=== PATIENT | male | born 1995 | race Two or more races ===

== ENCOUNTER → 2023-11-01 | Emergency (ER) | payer OTHER ==
[~2023-11-01] VITALS: Ht 172.7 cm; Wt 127.0 kg
[~2023-11-01] MED LIST: KETOROLAC TROMETHAMINE 30 MG VIAL IM STA; METFORMIN HCL500 MG; ZESTRIL10 M1
== END | disposition home or self-care (01) ==
LOC: ER 09:44
DX: R20.2 Paresthesia of skin (principal); E11.9 Type 2 diabetes mellitus without complications; Z79.84 Long term (current) use of oral hypoglycemic drugs

== ENCOUNTER 2024-03-17 19:26 | Emergency (ER) | payer OTHER ==
[~2024-03-17] VITALS: Ht 170.2 cm; Wt 127.0 kg
[~2024-03-17 19:26] MED LIST changes: -KETOROLAC TROMETHAMINE 30 MG VIAL IM STA
[2024-03-17] MEDS ORDERED: ZESTRIL30 MG (19:33)
[2024-03-17] MEDS ORDERED: CEFTRIAXONE SODIUM 1,000 MG VIAL IM STA (20:14)
[2024-03-17] MEDS ORDERED: KETOROLAC TROMETHAMINE 30 MG VIAL IM STA (20:14)
== END 2024-03-17 20:31 | disposition home or self-care (01) ==
LOC: ER 19:27
DX: M79.675 Pain in left toe(s) (principal); L03.90 Cellulitis, unspecified; L60.0 Ingrowing nail

== ENCOUNTER → 2024-04-13 | Emergency (ER) | payer OTHER ==
[~2024-04-13] MED LIST changes: +ZESTRIL30 MG
== END | disposition left against medical advice (07) ==
LOC: ER 12:31
DX: Z53.21 Procedure and treatment not carried out due to patient leaving prior to being seen by health care provider (principal)

== ENCOUNTER 2024-08-03 12:35 | Emergency (ER) | payer OTHER ==
[~2024-08-03] VITALS: Ht 172.7 cm; Wt 124.7 kg
[2024-08-03 13:51] VITALS: O2SAT 98
[2024-08-03] MEDS ORDERED: KETOROLAC TROMETHAMINE 60 MG VIAL IM STA (16:10)
[2024-08-03] MEDS ORDERED: CLINDAMYCIN PHOSPHATE 150 MG/ML (600mg) IM STA (16:11)
== END 2024-08-03 16:25 | disposition home or self-care (01) ==
LOC: ER 12:37
DX: L03.032 Cellulitis of left toe (principal)